=== PATIENT | male | born 1980 | race Caucasian/White ===

== ENCOUNTER 2018-03-10 11:14 | Day surgery (SDC) | payer BC ==
[2018-03-10] MEDS ORDERED: Midazolam HCl 2 mg/2 ml Vial ONE ×2 (11:53→12:33)
[2018-03-10] MEDS ORDERED: Fentanyl 100 MCG/2 ML VIAL ONE ×3 (11:53→14:11)
[2018-03-10] MEDS ORDERED: Lidocaine 1% (PF) 30 ML VIAL ONE (11:59)
[2018-03-10] MEDS ORDERED: HYDROcodone/Acetaminophen 5/325 mg Tablet PO PRN ×2 (12:23)
[2018-03-10] MEDS ORDERED: Zolpidem Tartrate 5 MG TAB PO PRN (12:23)
[2018-03-10] MEDS ORDERED: Ondansetron HCl/PF 4 MG/2 ML Vial IVP PRN (12:23)
[2018-03-10] MEDS ORDERED: Promethazine HCl 25 MG/ML VIAL IM PRN (12:23)
[2018-03-10] MEDS ORDERED: Ketorolac Tromethamine 30 MG/ML VIAL IVP PRN (12:23)
[2018-03-10] MEDS ORDERED: traMADol HCl 50 MG TAB PO PRN ×2 (12:23)
[2018-03-10] MEDS ORDERED: Ropivacaine 0.2% 550 ML 550 ML NERVE BLCK SCH (12:23)
[2018-03-10] MEDS ORDERED: Fentanyl 100 MCG/2 ML VIAL IV PRN (12:24)
[2018-03-10] MEDS ORDERED: Bupivacaine/Epinephrine 0.25% 30 ML VIAL ONE (12:45)
[2018-03-10] MEDS ORDERED: CEFAZOLIN/Water 2 GM/20 ML SYRINGE ONE (13:13)
[2018-03-10] MEDS ORDERED: Ondansetron HCl/PF 4 MG/2 ML Vial ONE ×2 (14:05→16:45)
[2018-03-10] MEDS ORDERED: Promethazine HCl 25 MG/ML VIAL ONE (15:32)
[2018-03-10] MEDS ORDERED: Ropivacaine 0.2% HCl/PF (40 MG/20 ML VIAL) ONE (16:23)
[2018-03-10] MEDS ORDERED: Ropivacaine 0.5% HCl/PF (150 MG/30 ML VIAL) ONE (16:23)
[2018-03-10] MEDS ORDERED: Dexamethasone 20 MG/5 ML VIAL ONE (16:45)
[2018-03-10] MEDS ORDERED: PROPOFOL 200 MG/20 ML VIAL ONE (16:45)
[2018-03-10] MEDS ORDERED: Ondansetron ODT 4 MG TAB ONE (17:35)
--- NOTE | 2018-03-10 18:53 | OP ---
DATE OF PROCEDURE: 03/10/2018 OPERATIONS: 1. Right shoulder subacromial decompression with acromioplasty. 2. Biceps tenodesis. 3. Labral debridement. PREOPERATIVE DIAGNOSES: Right shoulder subacromial impingement with underlying partial thickness rot ator cuff tear and advanced biceps tendinitis, superior labrum anterior to posterior tear. POSTOPERATIVE DIAGNOSES: Right shoulder subacromial impingement with underlying partial thickness ro tator cuff tear and advanced biceps tendinitis, superior labrum anterior to posterior tear. COMPLICATIONS: None. ESTIMATED BLOOD LOSS: Minimal. SURGEON: Shaquille Gardiner M.D. ANESTHESIA: General plus regional. INDICATIONS: Mr. Weinstein is a 37-year-old male who has injured his shoulder. He has failed conservati ve treatment including gentle exercise and injection. He has been indicated for surgical repair to r estore function and relieve pain. Risks have been reviewed in detail. DESCRIPTION OF PROCEDURE: Mr. Weinstein was identified in the preoperative holding area. His correct ex tremity was marked. He was carried to the operating room. He was positioned supine. General anesth esia was induced. He was converted to the beach chair position. At this point, we proceeded with shoulder arthroscopy. The patient's bony landmarks were marked out. We then inserted an arthroscope from a posterior portal. A small 1 cm incision was made. We exami alyson the intra-articular shoulder. We encountered the patient's extensive labral tear as well as a lo ose body anteriorly in the shoulder. The patient had advanced biceps tendonitis with tearing and fra armida of the biceps anchor. The subscapularis was intact as well as the rotator cuff from the articul ar surface. At this point, we made a small anterior portal. We inserted an arthroscopic shaver and debrided the labrum as well as the inflamed and irritated tissue over the anterior shoulder. Small loose body was removed. At this point, we placed in a stay suture into the biceps tendon. We then amputated the b iceps tendon off of its insertion site. Next, we delivered the biceps tendon through an anterior lat eral portal. We sutured this with a FiberWire suture. We then drilled a 25 mm tunnel into the bone at the region of the intertubercular groove. We then docked the biceps tendon into this prepared bon e tunnel. We had a good fit and firm biceps tenodesis. Again, we thoroughly irrigated and gently de brided. Next, we moved to the subacromial space. A high speed shaver as well as electrocautery laura ce was used to debride the extensive bursitis down to a healthy rotator cuff. There was some fraying of the rotator cuff, but no full thickness or near full thickness tearing. We performed an acromiop lasty using cutting block technique using a high speed bur from anterior to posterior. After thoroug h bursectomy and acromioplasty again, we inspected the rotator cuff and found that we did not need to place any anchors. We performed a final gentle debridement and then closed our wounds with #3-0 nyl on suture. A sterile dressing was applied. The patient was taken to the recovery room in good condi tion.
== END 2018-03-10 18:48 | disposition home or self-care (01) ==
LOC: SDC 11:14
PROVIDERS: ATTEND Orthopaedic Surgery
PROC: 0LS14ZZ Reposition Right Shoulder Tendon, Percutaneous Endoscopic Approach (ICD-10-PCS; principal; 2018-03-10)
PROC: 0RNJ4ZZ Release Right Shoulder Joint, Percutaneous Endoscopic Approach (ICD-10-PCS; principal; 2018-03-10)
DX: M25.811 Other specified joint disorders, right shoulder (principal); M75.111 Incomplete rotator cuff tear or rupture of right shoulder, not specified as traumatic; M75.21 Bicipital tendinitis, right shoulder; I10 Essential (primary) hypertension; Z88.1 Allergy status to other antibiotic agents
CPT/HCPCS: A4306; C1713; J1100; J2001; J2250; J2405; J2550; J2704; J2795; J3010; Q0162

== ENCOUNTER 2018-05-02 07:41 | Outpatient (CLI) | payer BC ==
--- NOTE | 2018-05-02 09:54 | MRI ---
MRI OF RIGHT SHOULDER PERFORMED WITHOUT CONTRAST ENHANCEMENT: HISTORY: Right shoulder pain. History of previous surgery. FINDINGS: There are AC joint hypertrophic changes present. There is moderate joint effusion with synovitis change and fluid within the subacromial subdeltoid re cess. There is a very disorganized appearance to the anteriormost fibers of the supraspinatus tendon and I believe this to represent a full-thickness nonretracted tear of the anteriormost fibers. Ther e is also a smaller undersurface tear associated with what appears to be either an erosion or subchon dral cyst of the humeral head. His is a lower grade undersurface infraspinatus tear. There is evidence with tenodesis. There is a surgical screw in place. The biceps tendon is seen in the bicipital groove. There appears to be a partial split tear of the residual tendon. The superior labrum is truncated related to the tenodesis. There is an extensive posterior labral tear present. There is no significant rotator cuff muscle atrophy. There are edema changes surrounding the infrasp inatus tendon. IMPRESSION: 1. Postop tenodesis change. 2. Extensive posterior labral tear. 3. Disorganized appearance to the anteriormost fibers of the supraspinatus tendon which I believe is a nonretracted full-thickness tear. There is also fluid extending through the rotator cuff interval . These changes account for the fluid in the subacromial subdeltoid recess. 4. There are synovitis changes. The amount of joint fluid is more than typically seen. This could represent a synovitis related to an inflammatory arthritis. An infectious process would have to be c onsidered. Clinical correlation recommended. POS: OFF
== END 2018-05-02 07:42 | disposition home or self-care (01) ==
LOC: TBSIIMAG 07:41
PROVIDERS: ATTEND Orthopaedic Surgery
DX: M75.111 Incomplete rotator cuff tear or rupture of right shoulder, not specified as traumatic (principal); M75.21 Bicipital tendinitis, right shoulder; Z98.890 Other specified postprocedural states